=== PATIENT | female | born 1990 | race American Indian/Alaskan Native ===

== ENCOUNTER 2024-09-09 12:50 | Emergency (ER) | payer MEDICAID ==
[~2024-09-09] VITALS: Ht 167.6 cm; Wt 86.4 kg
[2024-09-09 15:02] VITALS: BP 119/77; PULSE 90; RESP 16; TEMP 98.8; O2SAT 98
== END 2024-09-09 15:06 | disposition home or self-care (01) ==
LOC: ER 12:51
DX: Z00.00 Encounter for general adult medical examination without abnormal findings (principal); I49.9 Cardiac arrhythmia, unspecified; Z88.5 Allergy status to narcotic agent; Z88.0 Allergy status to penicillin
CPT/HCPCS: 93005; 99283